=== PATIENT | female | born 1940 | race Caucasian/White ===

== ENCOUNTER 2018-07-15 22:13 | Emergency (ER) | payer MEDICARE, BC ==
[~2018-07-15] VITALS: Ht 170.2 cm; Wt 81.8 kg
--- NOTE | 2018-07-16 01:55 | NUR ---
Sissy becker CALLED REPORT TO Nirmala randall @ [facility] IN PREPARATION FOR PT TRANSFER D/T TRAUMA STATUS.
[2018-07-16] MEDS ORDERED: fentaNYL/PF 50MCG/1 ML 2ML syringe IV ONE (02:00)
[2018-07-16] MEDS ORDERED: ondansetron/PF 4mg/2ml inj IV ONE (02:00)
[2018-07-16 02:15] VITALS: BP 142/82
[2018-07-16 02:44] LABS: BASOPHILS % (AUTO) 0.4 % (0-1); EOSINOPHILS % (AUTO) 0.6 % (0-6); HEMATOCRIT 46.7 % (35.0-45.0); HEMOGLOBIN 15.3 g/dl (12.0-16.0); LYMPHOCYTES # (AUTO) 1.1 X10'3 (1.1-4.8); LYMPHOCYTES % (AUTO) 14.5 % (21-51); MEAN CORPUSCULAR HEMOGLOBIN 28.9 PG (27.0-31.0); MEAN CORPUSCULAR HGB CONC 32.7 g/dL (33.0-36.5); MEAN CORPUSCULAR VOLUME 88.4 FL (78-98); MEAN PLATELET VOLUME 8.1 FL (7.4-10.4); MONOCYTES # (AUTO) 0.3 X10'3 (0-0.9); MONOCYTES % (AUTO) 4.3 % (2-12); NEUTROPHILS # (AUTO) 6.1 X10'3 (1.8-7.7); NEUTROPHILS % (AUTO) 80.2 % (42-75); PLATELET COUNT 262 X10'3 (140-440); RED BLOOD COUNT 5.28 X10'6 (4.20-5.60); RED CELL DISTRIBUTION WIDTH 14.2 % (11.5-14.5); WHITE BLOOD COUNT 7.6 X10'3 (4.5-11.0)
[2018-07-16 02:50] LABS: ALANINE AMINOTRANSFERASE 22 U/L (12-78); ALBUMIN 3.9 G/DL (3.4-5.0); ALBUMIN/GLOBULIN RATIO 1.1 (1.1-1.5); ALKALINE PHOSPHATASE 70 IU/L (46-116); ANION GAP 9 (8-16); ASPARTATE AMINO TRANSFERASE 19 U/L (10-37); BILIRUBIN,TOTAL 0.6 MG/DL (0.1-1.0); BLOOD UREA NITROGEN 13 MG/DL (7-18); BUN/CREATININE RATIO 14.8 (6.6-38.0); CHLORIDE 101 MMOL/L (99-107); CREATININE 0.88 MG/DL (0.40-0.90); GLUCOSE 153 MG/DL (70-104); LIPASE 63 U/L (73-393); POTASSIUM 4.3 MMOL/L (3.5-5.1); SODIUM 135 MMOL/L (135-145); TOTAL CARBON DIOXIDE 24.7 MMOL/L (24-32); TOTAL PROTEIN 7.6 G/DL (6.4-8.2); eGFR 62 ML/MIN
== END 2018-07-16 03:35 | disposition home or self-care (01) ==
LOC: ER 22:13
DX: G89.29 Other chronic pain (principal); M25.552 Pain in left hip; M54.5 Low back pain; R10.32 Left lower quadrant pain; I48.91 Unspecified atrial fibrillation; Z95.0 Presence of cardiac pacemaker; Z88.6 Allergy status to analgesic agent; Z88.8 Allergy status to other drugs, medicaments and biological substances
CPT/HCPCS: 36415; 73502; 74176; 80053; 83690; 85025; 96374; 96375; 99284; J2405; J3010

== ENCOUNTER 2018-09-04 19:47 | Inpatient (IN) | payer MEDICARE, BC ==
[~2018-09-04] VITALS: Ht 170.2 cm; Wt 69.0 kg
[2018-09-04 21:37] LABS: CLARITY,URINE CLEAR (Clear); COLOR,URINE YELLOW (Yellow); GLUCOSE, URINE NEGATIVE (Neg); KETONES,URINE TRACE mg/dl (Neg); LEUKOCYTE ESTERASE ,URINE NEGATIVE (Neg); NITRITES, URINE NEGATIVE (Neg); OCCULT BLOOD,URINE NEGATIVE (Neg); PH,URINE 5.5 (4.8-8.0); PROTEIN,URINE TRACE mg/dl (Neg); UROBILINOGEN,URINE 0.2 E.U/dL (0.2-1.0)
[2018-09-04 21:43] LABS: UA COLLECTION TYPE CLN CATCH MIDSTREAM
[2018-09-04 21:47] LABS: BACTERIA,URINE NONE SEEN /HPF (Neg); RBC,URINE 0-2 /HPF (0-2); SQUAMOUS EPITHELIAL CELL,UR FEW /LPF (FEW); STARCH,URINE MODERATE /HPF (NEGATIVE); WBC,URINE NONE SEEN /HPF (0-4)
[2018-09-04] MEDS ORDERED: normal saline 1000ML IV soln IVB ONE (21:55)
[2018-09-04 22:21] LABS: BASOPHILS # (AUTO) 0.1 X10'3 (0-0.2); BASOPHILS % (AUTO) 0.7 % (0-1); EOSINOPHILS # (AUTO) 0.4 X10'3 (0-0.9); HEMATOCRIT 41.2 % (35.0-45.0); HEMOGLOBIN 13.8 g/dl (12.0-16.0); LYMPHOCYTES # (AUTO) 1.5 X10'3 (1.1-4.8); LYMPHOCYTES % (AUTO) 16.5 % (21-51); MEAN CORPUSCULAR HEMOGLOBIN 29.9 PG (27.0-31.0); MEAN CORPUSCULAR HGB CONC 33.4 g/dL (33.0-36.5); MEAN CORPUSCULAR VOLUME 89.5 FL (78-98); MEAN PLATELET VOLUME 7.7 FL (7.4-10.4); MONOCYTES # (AUTO) 0.6 X10'3 (0-0.9); MONOCYTES % (AUTO) 7.1 % (2-12); NEUTROPHILS # (AUTO) 6.3 X10'3 (1.8-7.7); NEUTROPHILS % (AUTO) 71.7 % (42-75); PLATELET COUNT 277 X10'3 (140-440); RED BLOOD COUNT 4.61 X10'6 (4.20-5.60); RED CELL DISTRIBUTION WIDTH 14.6 % (11.5-14.5); WHITE BLOOD COUNT 8.8 X10'3 (4.5-11.0)
--- NOTE | 2018-09-04 22:29 | NUR ---
Dr Sarmiento gave pt sandwich and juice, charan well, no n/v, 1st liter NS infusing w/o,
--- NOTE | 2018-09-04 22:30 | NUR ---
pt to CT
[2018-09-04 22:33] LABS: ALANINE AMINOTRANSFERASE 33 U/L (12-78); ALBUMIN 3.3 G/DL (3.4-5.0); ALBUMIN/GLOBULIN RATIO 1.1 (1.1-1.5); ALKALINE PHOSPHATASE 65 IU/L (46-116); ANION GAP 8 (8-16); ASPARTATE AMINO TRANSFERASE 25 U/L (10-37); BILIRUBIN,TOTAL 0.3 MG/DL (0.1-1.0); BLOOD UREA NITROGEN 21 MG/DL (7-18); BUN/CREATININE RATIO 19.4 (6.6-38.0); CALCIUM 9.5 MG/DL (8.5-10.1); CHLORIDE 106 MMOL/L (99-107); CREATININE 1.08 MG/DL (0.40-0.90); GLUCOSE 127 MG/DL (70-104); POTASSIUM 4.1 MMOL/L (3.5-5.1); SODIUM 137 MMOL/L (135-145); TOTAL CARBON DIOXIDE 22.9 MMOL/L (24-32); TOTAL PROTEIN 6.4 G/DL (6.4-8.2); eGFR 49 ML/MIN
[2018-09-04 22:42] LABS: ETHANOL < 0.010 GM/DL (0.0-0.010); MAGNESIUM 1.9 MG/DL (1.5-2.4); PHOSPHORUS 3.7 MG/DL (2.3-4.5); TROPONIN I < 0.04 NG/ML (0.0-0.05)
--- NOTE | 2018-09-04 23:26 | NUR ---
pt amb with steady gait to restroom
[2018-09-04] MEDS ORDERED: ondansetron/PF 4mg/2ml inj IV PRN (23:45)
[2018-09-04] MEDS ORDERED: magnesium 4gm in 100ml NS 100 ML IV PRN (23:45)
[2018-09-04] MEDS ORDERED: potassium Cl 40MEQ/NS 500ml 500 ML IV PRN ×2 (23:45)
[2018-09-04] MEDS ORDERED: magnesium 2GM in 50ml NS 50 ML IV PRN (23:45)
[2018-09-04] MEDS ORDERED: potassium Cl 20 mEq SR tablet PO PRN ×2 (23:45)
[2018-09-04] MEDS ORDERED: magnesium Cl slow-release 64mg tablet PO PRN (23:45)
[2018-09-05 00:10] VITALS: BP 163/95
[2018-09-05] MEDS: normal saline 1000ml 1,000 ML IV SCH (00:11)
--- NOTE | 2018-09-05 01:13 | NUR ---
REPORT REC'D FROM EAN ERIC RN. PT UP TO FLOOR AT 0045, SETTLED IN AND VSS. SCD'S APPLIED AND PT REFUSED THEM.
[2018-09-05 06:14] LABS: BASOPHILS # (AUTO) 0.1 X10'3 (0-0.2); BASOPHILS % (AUTO) 0.7 % (0-1); EOSINOPHILS # (AUTO) 0.3 X10'3 (0-0.9); EOSINOPHILS % (AUTO) 4.1 % (0-6); HEMATOCRIT 38.4 % (35.0-45.0); LYMPHOCYTES # (AUTO) 1.5 X10'3 (1.1-4.8); LYMPHOCYTES % (AUTO) 19.2 % (21-51); MEAN CORPUSCULAR HEMOGLOBIN 30.1 PG (27.0-31.0); MEAN CORPUSCULAR HGB CONC 33.9 g/dL (33.0-36.5); MEAN CORPUSCULAR VOLUME 88.8 FL (78-98); MEAN PLATELET VOLUME 7.8 FL (7.4-10.4); MONOCYTES # (AUTO) 0.6 X10'3 (0-0.9); MONOCYTES % (AUTO) 7.5 % (2-12); NEUTROPHILS # (AUTO) 5.3 X10'3 (1.8-7.7); NEUTROPHILS % (AUTO) 68.5 % (42-75); PLATELET COUNT 246 X10'3 (140-440); RED BLOOD COUNT 4.33 X10'6 (4.20-5.60); RED CELL DISTRIBUTION WIDTH 14.3 % (11.5-14.5); WHITE BLOOD COUNT 7.7 X10'3 (4.5-11.0)
[2018-09-05 06:16] LABS: ANION GAP 7 (8-16); BLOOD UREA NITROGEN 17 MG/DL (7-18); BUN/CREATININE RATIO 18.3 (6.6-38.0); CALCIUM 9.1 MG/DL (8.5-10.1); CHLORIDE 109 MMOL/L (99-107); CREATININE 0.93 MG/DL (0.40-0.90); GLUCOSE 124 MG/DL (70-104); MAGNESIUM 1.8 MG/DL (1.5-2.4); POTASSIUM 3.9 MMOL/L (3.5-5.1); SODIUM 140 MMOL/L (135-145); TOTAL CARBON DIOXIDE 23.7 MMOL/L (24-32); eGFR 58 ML/MIN
--- NOTE | 2018-09-05 06:29 | NUR ---
REPORT GIVEN TO NOLAN LOVE.
[2018-09-05 07:14] VITALS: BP 157/96
[2018-09-05] MEDS: K and/or MAG REPLACEMENT MC SCH (08:00)
[2018-09-05 09:25] VITALS: BP 167/100
[2018-09-05] MEDS ORDERED: PRAM0.5T3 PO (10:17)
[2018-09-05] MEDS ORDERED: LISI-600 PO (10:17)
[2018-09-05] MEDS ORDERED: TRAZ-251 PO (10:17)
[2018-09-05] MEDS ORDERED: HYDR-4069 PO (10:17)
[2018-09-05] MEDS ORDERED: GABA600T13 PO (10:17)
[2018-09-05] MEDS ORDERED: APIX5TAB3 PO (10:17)
[2018-09-05] MEDS ORDERED: METO100T14 PO (10:17)
[2018-09-05] MEDS: gabapentin 300mg capsule PO SCH ×2 (14:24→20:21)
[2018-09-05] MEDS ORDERED: bisacodyl 10mg suppository rectal RC PRN (16:00)
[2018-09-05] MEDS ORDERED: magnesium hydroxide 30ml (MOM) UD suspension PO ONE (16:00)
[2018-09-05 18:30] VITALS: BP 158/95
[2018-09-05] MEDS: hyDRALAzine 10mg tablet PO SCH (20:16)
[2018-09-05] MEDS: apixaban 5mg tablet PO SCH (20:17)
[2018-09-05] MEDS: metoprolol tartrate 50mg tablet PO SCH (20:20)
[2018-09-05] MEDS: pramipexole 0.25mg tablet PO SCH (20:21)
[2018-09-05] MEDS ORDERED: traZODone 50mg tablet PO SCH (21:00)
[2018-09-05] MEDS ORDERED: lisinopril 5mg tablet PO SCH (21:00)
[2018-09-05 22:00] VITALS: BP 153/101
[2018-09-06] MEDS: normal saline 1000ml 1,000 ML IV SCH (03:39)
[2018-09-06 06:00] VITALS: BP 151/95
[2018-09-06 06:21] LABS: ALBUMIN 2.7 G/DL (3.4-5.0); ANION GAP 8 (8-16); BASOPHILS % (AUTO) 0.7 % (0-1); BLOOD UREA NITROGEN 15 MG/DL (7-18); CALCIUM 8.6 MG/DL (8.5-10.1); CHLORIDE 108 MMOL/L (99-107); CREATININE 0.88 MG/DL (0.40-0.90); EOSINOPHILS # (AUTO) 0.2 X10'3 (0-0.9); EOSINOPHILS % (AUTO) 3.1 % (0-6); GLUCOSE 142 MG/DL (70-104); HEMOGLOBIN 12.8 g/dl (12.0-16.0); LYMPHOCYTES # (AUTO) 1.3 X10'3 (1.1-4.8); LYMPHOCYTES % (AUTO) 17.6 % (21-51); MAGNESIUM 1.9 MG/DL (1.5-2.4); MEAN CORPUSCULAR HEMOGLOBIN 29.8 PG (27.0-31.0); MEAN CORPUSCULAR HGB CONC 33.8 g/dL (33.0-36.5); MEAN CORPUSCULAR VOLUME 88.3 FL (78-98); MEAN PLATELET VOLUME 7.7 FL (7.4-10.4); MONOCYTES # (AUTO) 0.6 X10'3 (0-0.9); MONOCYTES % (AUTO) 8.1 % (2-12); NEUTROPHILS # (AUTO) 5.1 X10'3 (1.8-7.7); NEUTROPHILS % (AUTO) 70.5 % (42-75); PLATELET COUNT 236 X10'3 (140-440); POTASSIUM 3.8 MMOL/L (3.5-5.1); RED BLOOD COUNT 4.31 X10'6 (4.20-5.60); RED CELL DISTRIBUTION WIDTH 14.3 % (11.5-14.5); SODIUM 139 MMOL/L (135-145); TOTAL CARBON DIOXIDE 22.6 MMOL/L (24-32); WHITE BLOOD COUNT 7.2 X10'3 (4.5-11.0); eGFR 62 ML/MIN
[2018-09-06] MEDS: K and/or MAG REPLACEMENT MC SCH (08:00)
[2018-09-06] MEDS: apixaban 5mg tablet PO SCH (08:01)
[2018-09-06] MEDS: hyDRALAzine 10mg tablet PO SCH (08:01)
[2018-09-06] MEDS: gabapentin 300mg capsule PO SCH (08:01)
[2018-09-06] MEDS: pramipexole 0.25mg tablet PO SCH (08:01)
[2018-09-06] MEDS: metoprolol tartrate 50mg tablet PO SCH (08:03)
[2018-09-06 10:00] VITALS: BP 127/82
== END 2018-09-06 11:00 | disposition home or self-care (01) | DRG 682 ==
LOC: ER 19:49 → ORTHO 4S 09-05 00:51
PROVIDERS: ADMIT Internal Medicine; ATTEND Family Medicine
DX: N17.9 Acute kidney failure, unspecified (principal); G93.41 Metabolic encephalopathy; I10 Essential (primary) hypertension; I48.2 Chronic atrial fibrillation; M54.9 Dorsalgia, unspecified; G89.29 Other chronic pain; G25.81 Restless legs syndrome; E86.0 Dehydration; Z88.6 Allergy status to analgesic agent; Z88.8 Allergy status to other drugs, medicaments and biological substances; Z79.899 Other long term (current) drug therapy; Z95.0 Presence of cardiac pacemaker
CPT/HCPCS: 36415; 70450; 71045; 80048; 80053; 80320; 81001; 82140; 82607; 83735; 84100; 84443; 84484; 85025; 85610; 87070; 93005; 97116; 97530; 99285; G0378; J7030

== ENCOUNTER 2018-11-12 10:26 | Day surgery (SDC) | payer MEDICARE, BC ==
[~2018-11-12] VITALS: Ht 170.2 cm; Wt 72.6 kg
[~2018-11-12 10:26] MED LIST: APIX5TAB3 PO; GABA600T13 PO; HYDR-4069 PO; LISI-600 PO; METO100T14 PO; PRAM0.5T3 PO; TRAZ-251 PO
[2018-11-12] MEDS ORDERED: normal saline 1,000 ML IV SCH (10:50)
[2018-11-12] MEDS ORDERED: diphenhydrAMINE 25mg capsule PO PRN (10:50)
--- NOTE | 2018-11-12 11:00 | NUR ---
PROCEDURE CANCELED AT THIS TIME. PATIENT TO RESCHEDULE. D/[facility] HOME. NO DISTRESS NOTED.
== END 2018-11-12 11:00 | disposition home or self-care (01) ==
LOC: SSTAY O 10:26
PROVIDERS: ATTEND Internal Medicine Cardiovascular Disease
DX: R07.2 Precordial pain (principal); Z53.8 Procedure and treatment not carried out for other reasons; I48.2 Chronic atrial fibrillation; I49.5 Sick sinus syndrome; I10 Essential (primary) hypertension; G62.9 Polyneuropathy, unspecified; J45.909 Unspecified asthma, uncomplicated; Q21.1 Atrial septal defect; Z80.8 Family history of malignant neoplasm of other organs or systems; Z98.890 Other specified postprocedural states; Z79.899 Other long term (current) drug therapy; Z95.0 Presence of cardiac pacemaker; Z88.8 Allergy status to other drugs, medicaments and biological substances
CPT/HCPCS: J7030

== ENCOUNTER 2019-08-15 11:03 | Emergency (ER) | payer MEDICARE, BC ==
[~2019-08-15] VITALS: Ht 170.2 cm; Wt 90.0 kg
[2019-08-15 11:04] VITALS: BP 112/63
[2019-08-15 11:47] LABS: BASOPHILS # (AUTO) 0.1 X10'3 (0-0.2); BASOPHILS % (AUTO) 0.7 % (0-1); EOSINOPHILS # (AUTO) 0.1 X10'3 (0-0.9); EOSINOPHILS % (AUTO) 1.8 % (0-6); HEMATOCRIT 44.8 % (35.0-45.0); HEMOGLOBIN 14.7 g/dl (12.0-16.0); LYMPHOCYTES # (AUTO) 1.8 X10'3 (1.1-4.8); MEAN CORPUSCULAR HEMOGLOBIN 29.8 PG (27.0-31.0); MEAN CORPUSCULAR HGB CONC 32.9 g/dL (33.0-36.5); MEAN CORPUSCULAR VOLUME 90.7 FL (78-98); MEAN PLATELET VOLUME 8.6 FL (7.4-10.4); MONOCYTES # (AUTO) 0.5 X10'3 (0-0.9); MONOCYTES % (AUTO) 6.3 % (2-12); NEUTROPHILS # (AUTO) 5.3 X10'3 (1.8-7.7); NEUTROPHILS % (AUTO) 68.2 % (42-75); PLATELET COUNT 279 X10'3 (140-440); RED BLOOD COUNT 4.94 X10'6 (4.20-5.60); RED CELL DISTRIBUTION WIDTH 13.8 % (11.5-14.5); WHITE BLOOD COUNT 7.8 X10'3 (4.5-11.0)
[2019-08-15 12:00] LABS: ALANINE AMINOTRANSFERASE 23 U/L (12-78); ALBUMIN 3.5 G/DL (3.4-5.0); ALKALINE PHOSPHATASE 104 IU/L (46-116); ANION GAP 9 (8-16); ASPARTATE AMINO TRANSFERASE 16 U/L (10-37); BILIRUBIN,TOTAL 0.5 MG/DL (0.1-1.0); BLOOD UREA NITROGEN 24 MG/DL (7-18); BUN/CREATININE RATIO 18.9 (6.6-38.0); CALCIUM 9.4 MG/DL (8.5-10.1); CHLORIDE 104 MMOL/L (99-107); CREATININE 1.27 MG/DL (0.40-0.90); GLUCOSE 262 MG/DL (70-104); POTASSIUM 3.9 MMOL/L (3.5-5.1); SODIUM 140 MMOL/L (135-145); TOTAL CARBON DIOXIDE 27.3 MMOL/L (24-32); TOTAL PROTEIN 6.9 G/DL (6.4-8.2); eGFR 41 ML/MIN
[2019-08-15 12:06] LABS: CLARITY,URINE SLIGHTLY CLOUDY (Clear); COLOR,URINE STRAW (Yellow); GLUCOSE, URINE 250 mg/dl (Neg); KETONES,URINE NEGATIVE (Neg); LEUKOCYTE ESTERASE ,URINE SMALL (Neg); NITRITES, URINE NEGATIVE (Neg); OCCULT BLOOD,URINE NEGATIVE (Neg); PH,URINE 5.5 (4.8-8.0); PROTEIN,URINE NEGATIVE (Neg); UROBILINOGEN,URINE 0.2 E.U/dL (0.2-1.0)
[2019-08-15 12:09] LABS: UA COLLECTION TYPE CLN CATCH MIDSTREAM
[2019-08-15 12:12] LABS: MUCUS STRANDS FEW /LPF (Neg); SQUAMOUS EPITHELIAL CELL,UR MANY /LPF (FEW)
[2019-08-15 12:15] LABS: BACTERIA,URINE 1+ /HPF (Neg); RBC,URINE 0-2 /HPF (0-2)
[2019-08-15] MEDS ORDERED: CEPH250T PO (12:16)
== END 2019-08-15 12:27 | disposition home or self-care (01) ==
LOC: ER 11:03
DX: N39.0 Urinary tract infection, site not specified (principal); R41.0 Disorientation, unspecified; I48.91 Unspecified atrial fibrillation; G89.29 Other chronic pain; Z95.0 Presence of cardiac pacemaker; Z88.5 Allergy status to narcotic agent; Z88.6 Allergy status to analgesic agent; Z88.8 Allergy status to other drugs, medicaments and biological substances; Z79.2 Long term (current) use of antibiotics; Z79.899 Other long term (current) drug therapy
CPT/HCPCS: 36415; 80053; 81001; 85025; 99283

== ENCOUNTER 2019-09-11 05:08 | Emergency (ER) | payer MEDICARE, BC ==
[~2019-09-11] VITALS: Ht 170.2 cm; Wt 75.5 kg
[2019-09-11 05:45] LABS: BASOPHILS # (AUTO) 0.1 X10'3 (0-0.2); BASOPHILS % (AUTO) 0.8 % (0-1); EOSINOPHILS # (AUTO) 0.2 X10'3 (0-0.9); EOSINOPHILS % (AUTO) 2.2 % (0-6); HEMATOCRIT 42.3 % (35.0-45.0); HEMOGLOBIN 14.1 g/dl (12.0-16.0); LYMPHOCYTES # (AUTO) 2.2 X10'3 (1.1-4.8); LYMPHOCYTES % (AUTO) 24.4 % (21-51); MEAN CORPUSCULAR HGB CONC 33.5 g/dL (33.0-36.5); MEAN CORPUSCULAR VOLUME 89.7 FL (78-98); MONOCYTES # (AUTO) 0.6 X10'3 (0-0.9); NEUTROPHILS % (AUTO) 65.6 % (42-75); PLATELET COUNT 281 X10'3 (140-440); RED BLOOD COUNT 4.71 X10'6 (4.20-5.60); RED CELL DISTRIBUTION WIDTH 13.7 % (11.5-14.5); WHITE BLOOD COUNT 9.1 X10'3 (4.5-11.0)
[2019-09-11 05:53] LABS: D-DIMER 0.22 MG/L FEU (0-0.50)
[2019-09-11 05:59] LABS: ALANINE AMINOTRANSFERASE 31 U/L (12-78); ALBUMIN 3.4 G/DL (3.4-5.0); ALBUMIN/GLOBULIN RATIO 1.1 (1.1-1.5); ALKALINE PHOSPHATASE 92 IU/L (46-116); ANION GAP 11 (8-16); ASPARTATE AMINO TRANSFERASE 17 U/L (10-37); BILIRUBIN,TOTAL 0.3 MG/DL (0.1-1.0); BLOOD UREA NITROGEN 23 MG/DL (7-18); BUN/CREATININE RATIO 20.5 (6.6-38.0); CALCIUM 9.1 MG/DL (8.5-10.1); CHLORIDE 104 MMOL/L (99-107); CREATININE 1.12 MG/DL (0.40-0.90); GLUCOSE 162 MG/DL (70-104); POTASSIUM 3.6 MMOL/L (3.5-5.1); SODIUM 139 MMOL/L (135-145); TOTAL CARBON DIOXIDE 24.5 MMOL/L (24-32); TOTAL PROTEIN 6.6 G/DL (6.4-8.2); eGFR 47 ML/MIN
[2019-09-11 06:23] VITALS: BP 118/51
== END 2019-09-11 06:24 | disposition home or self-care (01) ==
LOC: ER 05:09
DX: M54.89 Other dorsalgia (principal); R07.89 Other chest pain; N18.9 Chronic kidney disease, unspecified; I48.91 Unspecified atrial fibrillation; G89.29 Other chronic pain; Z87.440 Personal history of urinary (tract) infections; Z95.0 Presence of cardiac pacemaker; Z88.6 Allergy status to analgesic agent; Z88.8 Allergy status to other drugs, medicaments and biological substances; Z79.899 Other long term (current) drug therapy
CPT/HCPCS: 36415; 71045; 80053; 84484; 85025; 85379; 93005; 99285

== ENCOUNTER 2020-03-27 12:09 | Emergency (ER) | payer MEDICARE, BC ==
[~2020-03-27] VITALS: Ht 170.2 cm; Wt 66.5 kg
[2020-03-27 12:11] VITALS: BP 147/80
[2020-03-27 12:57] LABS: BASOPHILS # (AUTO) 0.1 X10'3 (0-0.2); BASOPHILS % (AUTO) 0.8 % (0-1); EOSINOPHILS # (AUTO) 0.1 X10'3 (0-0.9); EOSINOPHILS % (AUTO) 0.8 % (0-6); HEMATOCRIT 38.3 % (35.0-45.0); HEMOGLOBIN 12.7 g/dl (12.0-16.0); LYMPHOCYTES # (AUTO) 1.8 X10'3 (1.1-4.8); LYMPHOCYTES % (AUTO) 21.8 % (21-51); MEAN CORPUSCULAR HEMOGLOBIN 29.8 PG (27.0-31.0); MEAN CORPUSCULAR HGB CONC 33.1 g/dL (33.0-36.5); MEAN PLATELET VOLUME 8.6 FL (7.4-10.4); MONOCYTES # (AUTO) 0.5 X10'3 (0-0.9); MONOCYTES % (AUTO) 5.8 % (2-12); NEUTROPHILS % (AUTO) 70.8 % (42-75); PLATELET COUNT 288 X10'3 (140-440); RED BLOOD COUNT 4.26 X10'6 (4.20-5.60); RED CELL DISTRIBUTION WIDTH 14.2 % (11.5-14.5); WHITE BLOOD COUNT 8.4 X10'3 (4.5-11.0)
[2020-03-27 12:59] LABS: CLARITY,URINE SLIGHTLY CLOUDY (Clear); COLOR,URINE YELLOW (Yellow); GLUCOSE, URINE 500 mg/dl (Neg); KETONES,URINE NEGATIVE (Neg); LEUKOCYTE ESTERASE ,URINE NEGATIVE (Neg); NITRITES, URINE NEGATIVE (Neg); OCCULT BLOOD,URINE NEGATIVE (Neg); PROTEIN,URINE NEGATIVE (Neg); UROBILINOGEN,URINE 0.2 E.U/dL (0.2-1.0)
[2020-03-27 13:15] LABS: ALANINE AMINOTRANSFERASE 26 U/L (12-78); ALBUMIN 3.4 G/DL (3.4-5.0); ALBUMIN/GLOBULIN RATIO 0.9 (1.1-1.5); ALKALINE PHOSPHATASE 118 IU/L (46-116); ANION GAP 11 (8-16); ASPARTATE AMINO TRANSFERASE 16 U/L (10-37); BILIRUBIN,TOTAL 0.5 MG/DL (0.1-1.0); BLOOD UREA NITROGEN 17 MG/DL (7-18); BUN/CREATININE RATIO 16.3 (6.6-38.0); CALCIUM 9.3 MG/DL (8.5-10.1); CHLORIDE 106 MMOL/L (99-107); CREATININE 1.04 MG/DL (0.40-0.90); GLUCOSE 215 MG/DL (70-104); POTASSIUM 3.9 MMOL/L (3.5-5.1); SODIUM 140 MMOL/L (135-145); TOTAL CARBON DIOXIDE 23.1 MMOL/L (24-32); TOTAL PROTEIN 7.1 G/DL (6.4-8.2); eGFR 51 ML/MIN
--- NOTE | 2020-03-27 13:30 | NUR ---
Patient eating lunch. No distress observed. Patient given warm blanket. Continue to monitor.
[2020-03-27 13:32] LABS: UA COLLECTION TYPE CLN CATCH MIDSTREAM
[2020-03-27 13:35] LABS: SQUAMOUS EPITHELIAL CELL,UR MANY /LPF (FEW)
[2020-03-27 13:37] LABS: BACTERIA,URINE FEW /HPF (Neg)
[2020-03-27 13:38] LABS: YEAST MODERATE /HPF (NEGATIVE)
[2020-03-27 13:40] LABS: RBC,URINE NONE SEEN /HPF (0-2); WBC,URINE 0-4 /HPF (0-4)
[2020-03-27 14:47] LABS: URINE AMPHETAMINE SCREEN NEGATIVE (Neg); URINE BARBITUATE SCREEN NEGATIVE (Neg); URINE BENZODIAZEPINES SCREEN NEGATIVE (Neg); URINE CANNABINOID SCREEN NEGATIVE (Neg); URINE COCAINE SCREEN NEGATIVE (Neg); URINE METHADONE SCREEN NEGATIVE (Neg); URINE OPIATE SCREEN NEGATIVE (Neg); URINE PHENCYCLIDINE SCREEN NEGATIVE (Neg)
--- NOTE | 2020-03-27 15:04 | NUR ---
Dr Orozco cancelled the 1798 and discharged patient with referal to Dr Howe office.
[2020-03-28] MEDS ORDERED: DILT120C51 PO (22:58)
[2020-03-28] MEDS ORDERED: LAN0.125T PO (22:58)
[2020-03-28] MEDS ORDERED: TRAZ-256 PO (22:58)
[2020-03-28] MEDS ORDERED: GABA300C PO (22:58)
[2020-03-28] MEDS ORDERED: GLIP10TA11 PO (22:58)
[2020-03-28] MEDS ORDERED: PANT40TA54 PO (22:58)
[2020-03-28] MEDS ORDERED: FLO0.4C PO (22:58)
[2020-03-28] MEDS ORDERED: FURO-150 PO (22:58)
[2020-03-28] MEDS ORDERED: ATOR40TA PO (22:58)
[2020-03-28] MEDS ORDERED: POTA10TA19 PO (22:58)
[2020-03-28] MEDS ORDERED: MAGN500C16 PO (22:58)
== END 2020-03-27 15:00 | disposition home or self-care (01) ==
LOC: ER 12:11
DX: R44.1 Visual hallucinations (principal); I48.91 Unspecified atrial fibrillation; G89.29 Other chronic pain; Z87.440 Personal history of urinary (tract) infections; Z95.0 Presence of cardiac pacemaker; Z88.6 Allergy status to analgesic agent; Z88.8 Allergy status to other drugs, medicaments and biological substances; Z79.899 Other long term (current) drug therapy
CPT/HCPCS: 36415; 80053; 80305; 81001; 85025; 99284

== ENCOUNTER 2020-03-28 18:39 | Emergency (ER) | payer MEDICARE, BC ==
[~2020-03-28] VITALS: Ht 170.2 cm; Wt 76.3 kg
[2020-03-28 18:45] VITALS: BP 164/80
--- NOTE | 2020-03-28 18:54 | NUR ---
PRISCILLA CALLED. HOME PHONE NUMBER IS [phone].
[2020-03-28 19:23] LABS: BASOPHILS # (AUTO) 0.1 X10'3 (0-0.2); BASOPHILS % (AUTO) 0.9 % (0-1); EOSINOPHILS # (AUTO) 0.1 X10'3 (0-0.9); HEMATOCRIT 40.7 % (35.0-45.0); HEMOGLOBIN 13.5 g/dl (12.0-16.0); LYMPHOCYTES # (AUTO) 2.1 X10'3 (1.1-4.8); LYMPHOCYTES % (AUTO) 21.2 % (21-51); MEAN CORPUSCULAR HEMOGLOBIN 29.7 PG (27.0-31.0); MEAN CORPUSCULAR HGB CONC 33.1 g/dL (33.0-36.5); MEAN CORPUSCULAR VOLUME 89.7 FL (78-98); MEAN PLATELET VOLUME 8.4 FL (7.4-10.4); MONOCYTES # (AUTO) 0.6 X10'3 (0-0.9); MONOCYTES % (AUTO) 5.6 % (2-12); NEUTROPHILS # (AUTO) 7.1 X10'3 (1.8-7.7); NEUTROPHILS % (AUTO) 71.3 % (42-75); PLATELET COUNT 302 X10'3 (140-440); RED BLOOD COUNT 4.54 X10'6 (4.20-5.60); RED CELL DISTRIBUTION WIDTH 14.2 % (11.5-14.5)
[2020-03-28] MEDS ORDERED: risperiDONE 0.5mg tablet PO ONE (19:35)
[2020-03-28 19:38] LABS: ALANINE AMINOTRANSFERASE 34 U/L (12-78); ALBUMIN 3.6 G/DL (3.4-5.0); ALBUMIN/GLOBULIN RATIO 0.9 (1.1-1.5); ALKALINE PHOSPHATASE 126 IU/L (46-116); ANION GAP 11 (8-16); ASPARTATE AMINO TRANSFERASE 21 U/L (10-37); BILIRUBIN,TOTAL 0.3 MG/DL (0.1-1.0); BLOOD UREA NITROGEN 17 MG/DL (7-18); BUN/CREATININE RATIO 17.3 (6.6-38.0); CALCIUM 9.5 MG/DL (8.5-10.1); CHLORIDE 108 MMOL/L (99-107); CREATININE 0.98 MG/DL (0.40-0.90); GLUCOSE 132 MG/DL (70-104); POTASSIUM 3.9 MMOL/L (3.5-5.1); SODIUM 142 MMOL/L (135-145); TOTAL CARBON DIOXIDE 23.2 MMOL/L (24-32); TOTAL PROTEIN 7.6 G/DL (6.4-8.2); eGFR 55 ML/MIN
--- NOTE | 2020-03-28 19:45 | NUR ---
BELLA LEVEL CHANGED TO LEVEL II R/T 1799 HOLD.
[2020-03-28 19:47] LABS: ETHANOL < 0.010 GM/DL (0.0-0.010)
[2020-03-28 20:12] LABS: CLARITY,URINE CLEAR (Clear); COLOR,URINE YELLOW (Yellow); GLUCOSE, URINE 250 mg/dl (Neg); KETONES,URINE NEGATIVE (Neg); LEUKOCYTE ESTERASE ,URINE NEGATIVE (Neg); NITRITES, URINE NEGATIVE (Neg); OCCULT BLOOD,URINE NEGATIVE (Neg); PROTEIN,URINE NEGATIVE (Neg); UROBILINOGEN,URINE 0.2 E.U/dL (0.2-1.0)
[2020-03-28 20:14] LABS: UA COLLECTION TYPE STRAIGHT CATH
[2020-03-28 20:37] LABS: URINE AMPHETAMINE SCREEN NEGATIVE (Neg); URINE BARBITUATE SCREEN NEGATIVE (Neg); URINE BENZODIAZEPINES SCREEN NEGATIVE (Neg); URINE CANNABINOID SCREEN NEGATIVE (Neg); URINE COCAINE SCREEN NEGATIVE (Neg); URINE METHADONE SCREEN NEGATIVE (Neg); URINE OPIATE SCREEN NEGATIVE (Neg); URINE PHENCYCLIDINE SCREEN NEGATIVE (Neg)
--- NOTE | 2020-03-28 20:46 | NUR ---
PACKET FAXED TO [facility]
[2020-03-28] MEDS ORDERED: LORazepam 2 mg/ml vial IV ONE (22:50)
[2020-03-28] MEDS ORDERED: POTA10TA19 PO (22:58)
[2020-03-28] MEDS ORDERED: DILT120C51 PO (22:58)
[2020-03-28] MEDS ORDERED: FURO-150 PO (22:58)
[2020-03-28] MEDS ORDERED: LAN0.125T PO (22:58)
[2020-03-28] MEDS ORDERED: GABA300C PO (22:58)
[2020-03-28] MEDS ORDERED: FLO0.4C PO (22:58)
[2020-03-28] MEDS ORDERED: ATOR40TA PO (22:58)
[2020-03-28] MEDS ORDERED: PANT40TA54 PO (22:58)
[2020-03-28] MEDS ORDERED: GLIP10TA11 PO (22:58)
[2020-03-28] MEDS ORDERED: MAGN500C16 PO (22:58)
[2020-03-28] MEDS ORDERED: TRAZ-256 PO (22:58)
[2020-03-29] MEDS ORDERED: haloperidol 5mg tablet PO ONE ×2 (00:10→04:15)
[2020-03-29] MEDS ORDERED: ziprasidone 20mg capsule PO ONE (02:35)
--- NOTE | 2020-03-29 02:53 | NUR ---
PEDRO PABLO CAPSULE PULLED FROM [employer] GIVEN TO [employer]PER[employer] PATTY FOR ADMINSTRATION
--- NOTE | 2020-03-29 08:22 | NUR ---
called and said that he believes patient has narcolepsy
--- NOTE | 2020-03-29 14:38 | NUR ---
Pt awake and eating her lunch.
== END 2020-03-29 19:11 ==
LOC: ER 18:40
DX: R44.1 Visual hallucinations (principal); I48.91 Unspecified atrial fibrillation; G89.29 Other chronic pain; Z86.73 Personal history of transient ischemic attack (TIA), and cerebral infarction without residual deficits; Z95.0 Presence of cardiac pacemaker; Z88.8 Allergy status to other drugs, medicaments and biological substances; Z79.899 Other long term (current) drug therapy
CPT/HCPCS: 36415; 80053; 80305; 80320; 81003; 84443; 85025; 96374; 99285; J2060